=== PATIENT | male | born 1955 | race Caucasian/White ===

== ENCOUNTER → 2017-04-17 | Day surgery (SDC) | payer OTHER ==
[~2017-04-17] VITALS: Ht 185.4 cm; Wt 75.3 kg
[~2017-04-17] MED LIST: *ONDANSETRON 4 MG VIAL PERIprocedural Use ONLY ONE; ACETAMINOPHEN 1000 MG/100 ML 100 ML IV ONE; BUPIVACAINE/EPINEPHRINE 0.25% PF 30 ML VIAL ONE; CARI1TAB45 PO; CHLORHEXIDINE GLUCONATE 2 % 1 PACK (2 CLOTHS) TOPICAL PRN; DEXAMETHASONE SOD PHOS 4 MG/ML VIAL IV ONE; DO NOT ADM ANY ANTICOAGULANT DRUGS PRN; FAMOTIDINE 20 MG/2 ML VIAL ONE; GLYCOPYRROLATE 0.2 MG/ML VIAL ONE; GLYCOPYRROLATE 1 MG/5 ML SYRINGE IV PUSH ONE; HYDR-3583 PO; INSULIN HUMAN REGULAR 1,000 UNITS/10 ML VIAL SQ PRN; KETOROLAC TROMETHAMINE 30 MG/ML (IVP) VIAL IV PUSH ONE; LACTATED RINGER'S 1000 ML INJ 1,000 ML IV ONE; LACTATED RINGER'S 1000 ML INJ 1,000 ML ONE; LACTATED RINGER'S 1000 ML IV PRN; LIDOCAINE HCL 1% PF 5 ML SYRINGE OTHER ONE; METOPROLOL TARTRATE 25 MG TAB PO PRN; MIDAZOLAM HCL 2 MG/2 ML VIAL IV ONE; MORPHINE SULFATE 4 MG/ML INJ IV PRN; NEOSTIGMINE 3 MG/3 ML SYR IV ONE; ONDANSETRON HCL 4 MG/2 ML VIAL IV ONE; ONDANSETRON HCL 4 MG/2 ML VIAL IV PUSH PRN; PERC10TA27 PO; POVIDONE IODINE 5% (ANTISEPSIS KIT) 4 APPLICATIONS EACH NARE PRN; PROPOFOL 200 MG/20 ML AMP IV ONE; ROCURONIUM INJ 50 MG/5 ML SYRINGE IV PUSH ONE; SODIUM CHLORID 0.9% 500 ML IV PRN; VANCOMYCIN HCL 1000 MG ON-CALL/NS 250 ML IV SCH; VANCOMYCIN HCL 1000 MG VIAL ONE; oxyCODONE/ACETAMINOPHEN 5 MG/325 MG TAB PO PRN
--- NOTE | 2017-04-17 15:57 | TN ---
cc: CLAIRE TREVINO M.D. DATE OF SURGERY 04/17/2017 PREOPERATIVE DIAGNOSIS Symptomatic bilateral inguinal hernias, left greater than right. POSTOPERATIVE DIAGNOSIS 1. Symptomatic bilateral inguinal hernias, left greater than right. 2. Direct right inguinal hernia. 3. Large indirect left inguinal hernia. PROCEDURE PERFORMED Laparoscopic bilateral inguinal hernia repair with mesh. SURGEON Claire Trevino MD ANESTHESIA General LMA COMPLICATIONS None INDICATIONS FOR PROCEDURE Mr. Krishna is a very pleasant 62-year-old gentleman who initially noticed a bulge in his right groin. He was essentially asymptomatic from it. He then noticed a much larger bulge in his left groin. He felt some bowel in the left groin and had a difficult time reducing it. He could hear gurgling sounds in his left groin. He was seen and evaluated by his primary physician for referred for repair. Risks, benefits of laparoscopic bilateral inguinal hernia repair with mesh was discussed with him. He was agreeable. DETAILS OF PROCEDURE The patient was identified and brought to the operating room and placed supine on the operating table. After adequate general anesthesia was achieved, the anterior abdomen and groin were prepped and draped in standard surgical fashion. Infraumbilical space was anesthetized with 0.25% Marcaine. Infraumbilical incision was made. Dissection was carried down to the subcutaneous tissue to the anterior rectus fascia. Anterior rectus fascia was then incised vertically off the midline. Rectus muscles were then retracted laterally. Preperitoneal space was entered with blunt finger dissection. Blunt dissecting balloon was inserted and insufflated with 30 pumps of air under direct vision. The dissecting balloon was then removed and balloon trocar inserted. Preperitoneal space insufflated to 11 mm using CO2 gas. Next two 5 mm trocars were placed in the lower midline under direct vision. Attention was first directed to the right side. The pubic tubercle and Patrice's ligament were identified medially and then dissection proceeded out laterally. Medial to the epigastric vessels we noted a direct hernia. This was photographed. Dissection proceeded out laterally identifying the cord structures. Cord structures were carefully inspected and the peritoneum was seen to reflect back away from the internal ring. Therefore he did not have an indirect inguinal hernia. The cord structures were then held up and the peritoneum was teased back away from the internal ring several centimeters. A posterior window was then made behind the cord structures. A piece of polypropylene mesh was inserted with a slit cut for the cord structures through the posterior window. The slit was then reapproximated using the tacking device. Internal ring was appropriately tightened. Mesh was then secured medially at Patrice's ligament and pubic tubercle and superiorly along with posterior abdominal wall fascia. An onlay mesh was then placed over the first mesh in order to buttress the slit. This mesh was secured medially and laterally. The mesh was photographed in place. Mesh had generous overlap over the direct defect and the indirect and direct spaces were well covered. Attention was now directed to the left side. On the left side a similar dissection technique was used. The patient did not have a direct inguinal hernia. Further dissection of the cord revealed a very large peritoneal sac traveling with the cord structures. Using meticulous hand over hand technique the hernia sac was carefully stripped out of the inguinal canal and off of the cord structures. The hernia sac was then dissected back away from the internal ring over several centimeters. A posterior window was then made behind the cord structures. A piece of polypropylene mesh was inserted with a slit cut for the cord structures. The slit was reapproximated using the tacking device appropriately tightening the internal ring. Mesh was then secured medially at Patrice's ligament and pubic tubercle and superiorly along the posterior abdominal wall fascia. Again onlay mesh was placed over the first mesh in order to buttress the slit. This mesh was secured medially and laterally. Mesh was photographed in place. There was generous overlap of mesh in all directions including over the indirect space where the patient previously had a hernia. 0.25% Marcaine was injected into both sides. On the right side the inferior border of mesh was held down. On the left side the peritoneal sac was grasped and held above the mesh. The preperitoneal space was desufflated and the peritoneum was seen to roll up over the mesh. All trocars removed under direct vision. Anterior rectus fascia repaired with 0 Vicryl in [id number] fashion. Skin was closed with 4-0 Vicryl. The patient tolerated procedure well, was awakened and brought to recovery in stable condition. MD YEN Pierce/MASSIEL /2:41 PM 3:36 PM
[2017-04-17 17:15] VITALS: BP 146/74; PULSE 54; RESP 18; TEMP 98.1; O2SAT 97
--- NOTE | 2017-04-18 16:23 | EKG ---
Date Performed: 04/17/2017 Time Performed: 12:17:45 PTAGE: 62 years EKG: Sinus rhythm WITH SINUS ARRHYTHMIA Can not exclude septal infarct since the previous tracing, but the Transition is more consistent with lead placement. Since the previous tracing, there has been no other significa nt Serial change. ABNORMAL ECG PREVIOUS TRACING : 08/17/2010 14.06 DOCTOR: Lori Galvin Interpretating Date/Time 04/18/2017 16:23:18
== END | disposition home or self-care (01) ==
LOC: ESDC 07:38
PROVIDERS: ATTEND Surgery Trauma Surgery
DX: K40.20 Bilateral inguinal hernia, without obstruction or gangrene, not specified as recurrent (principal); Z01.810 Encounter for preprocedural cardiovascular examination
CPT/HCPCS: 00840; 49650; 93005; C1727; C1781; J0131; J1100; J1885; J2250; J2270; J2405; J2710; J3010; J3370; J7120